=== PATIENT | male | born 1980 | race Two or more races ===

== ENCOUNTER 2024-06-07 16:22 | Emergency (ER) | payer OTHER ==
[~2024-06-07] VITALS: Ht 167.6 cm; Wt 68.0 kg
[2024-06-07] MEDS ORDERED: ACETAMINOPHEN 500 MG GEL..CAP PO ONE (17:27)
[2024-06-07] MEDS ORDERED: CLINDAMYCIN PHOSPHATE 150 MG/ML (600mg) IV ONE (19:00)
[2024-06-07] MEDS ORDERED: CLINDAMYCIN PHOSPHATE 150 MG/ML (300mg) ONE (19:23)
[2024-06-07 19:53] LABS: HEMATOCRIT 43.3 % (39.0-48.0); MEAN CELL VOLUME 98.1 fL (80.0-100.00); MEAN CORPUSCULAR HEMOGLOBIN 34.1 pg (27.00-32.0); MEAN CORPUSCULAR HGB CONC 34.8 g/dl (32.0-36.0); PLATELET COUNT 187 K/uL (150-450); RED BLOOD COUNT 4.41 M/uL (4.00-6.00); RED CELL DISTRIBUTION WIDTH 13.2 % (11.5-14.5)
[2024-06-07 20:16] LABS: ALBUMIN 4.1 gm/dL (3.4-5.0); BILIRUBIN TOTAL 0.79 mg/dL (0.3-1.2); CALCIUM 9.4 mg/dL (8.5-10.1); CREATININE SERUM 1.06 mg/dL (0.70-1.30); GFR 76.25; GLOBULINA 3.4 G/DL (2.4-3.5); POTASSIUM 4.35 mEq/L (3.5-5.1); TOTAL PROTEIN 7.5 gm/dL (6.4-8.2)
[2024-06-07] MEDS ORDERED: AMOX-CLAV 875-1 EACH PO (22:24)
[2024-06-07] MEDS ORDERED: DEXAMETHASONE SODIUM PHOSPHATE 4 MG/ML VIAL IM ONE (22:30)
[2024-06-07] MEDS ORDERED: KETOROLAC TROMETHAMINE 30 MG VIAL IV ONE (22:30)
[2024-06-07] MEDS ORDERED: DEXAMETHASONE SODIUM PHOSPHATE 4 MG/ML VIAL IV ONE (22:30)
[2024-06-07] MEDS ORDERED: KETOROLAC TROMETHAMINE 30 MG VIAL ONE (22:37)
[2024-06-07] MEDS ORDERED: DEXAMETHASONE SODIUM PHOSPHATE 4 MG/ML VIAL ONE (22:38)
== END 2024-06-07 23:14 | disposition home or self-care (01) ==
LOC: ER 16:23
PROVIDERS: Preventive Medicine Public Health & General Preventive Medicine
DX: J03.80 Acute tonsillitis due to other specified organisms (principal)